=== PATIENT | female | born 1955 | race Caucasian/White ===

== ENCOUNTER 2020-11-24 20:28 | Inpatient (IN) | payer MEDICARE, MEDICAID ==
[~2020-11-24] VITALS: Ht 154.9 cm; Wt 56.7 kg
[2020-11-24 22:16] LABS: BASOPHILS % 0.5 % (0.0-2.0); EOSINOPHILS % 10.1 % (0.0-5.0); HEMATOCRIT. 36.7 % (36.0-48.0); HEMOGLOBIN. 12.9 g/dL (12.0-16.0); LYMPHOCYTES % 15.9 % (20.0-50.0); MEAN CORPUSCULAR HEMOGLOBIN 31.3 pg (28.0-32.0); MEAN CORPUSCULAR VOLUME 89.2 fL (81.0-99.0); MEAN PLATELET VOLUME 7.5 fl (7.4-10.4); MONOCYTES % 10.5 % (2.0-8.0); PLATELET 177 x1000/uL (130-400); RED BLOOD CELL COUNT 4.11 mill/uL (4.2-5.4); RED CELL DISTRIBUTION WIDTH 13.5 % (11.6-14.6)
[2020-11-24 22:21] LABS: CHLORIDE 99 mEq/L (98-107)
[2020-11-24 22:26] LABS: ETHANOL BLOOD 27 mg/dL
[2020-11-24] MEDS ORDERED: SODIUM CHLORIDE 0.9% 1,000 ML IV ONE (23:00)
[2020-11-25 00:04] LABS: CLARITY URINE CLEAR (CLEAR); COLOR URINE YELLOW (YELLOW); KETONES URINE NEGATIVE (NEGATIVE); LEUKOCYTE ESTERASE URINE NEGATIVE (NEGATIVE); NITRITE URINE NEGATIVE (NEGATIVE); OCCULT BLOOD URINE NEGATIVE (NEGATIVE); PH URINE 6.5 (4.5-8.0); PROTEIN URINE NEGATIVE (NEGATIVE); SPECIFIC GRAVITY URINE 1.011 (1.005-1.030); UROBILINOGEN URINE 0.2 E.U./dL (0.2-1.0)
[2020-11-25 00:18] LABS: *AMPHETAMINES SCREEN URINE NEGATIVE (NEGATIVE); *BARBITURATES SCREEN URINE NEGATIVE (NEGATIVE); *BENZODIAZEPINES SCREEN URINE NEGATIVE (NEGATIVE); *COCAINE SCREEN URINE NEGATIVE (NEGATIVE); CANNABINOID URINE SCREEN PRESUMTIVE POSITIVE (NEGATIVE); METHADONE URINE SCREEN NEGATIVE (NEGATIVE); OPIATES URINE SCREEN NEGATIVE (NEGATIVE); PHENCYCLIDINE URINE SCREEN NEGATIVE (NEGATIVE)
[2020-11-25 09:40] VITALS: BP 159/66
[2020-11-25 10:00] VITALS: BP 159/66
[2020-11-25] MEDS: ENOXAPARIN 40MG/0.4ML SYR SUBCUT SCH (11:35)
[2020-11-25] MEDS: SODIUM CHLORIDE 0.9% 1,000 ML IV SCH (11:37)
[2020-11-25] MEDS ORDERED: METO-539 PO (11:58)
[2020-11-25 12:00] VITALS: BP 132/61
[2020-11-25] MEDS: HYDROCODONE/ACETAMINOPHEN 5/325MG TABLET PO PRN (14:18)
[2020-11-25 16:00] VITALS: BP_SYST 119; BP_SYST 136; BP_SYST 138; BP_SYST 148; BP_DIAS 64; BP_DIAS 67; BP_DIAS 71
[2020-11-25 18:00] VITALS: BP_SYST 134; BP_SYST 148; BP_DIAS 71; BP_DIAS 76
[2020-11-25 20:00] VITALS: BP 133/58
[2020-11-25] MEDS: IPRATROPIUM/ALBUTEROL 0.5-3(2.5)MG/3ML NEB HHN SCH (20:47)
[2020-11-26] VITALS: BP 128/50
[2020-11-26 04:00] VITALS: BP_SYST 153; BP_SYST 169; BP_DIAS 63; BP_DIAS 78
[2020-11-26 06:35] LABS: BASOPHILS % 0.7 % (0.0-2.0); EOSINOPHILS % 11.4 % (0.0-5.0); HEMATOCRIT. 37.7 % (36.0-48.0); MEAN CORPUSCULAR HEMOGLOBIN 31.2 pg (28.0-32.0); MEAN CORPUSCULAR VOLUME 90.7 fL (81.0-99.0); MEAN PLATELET VOLUME 7.6 fl (7.4-10.4); NEUTROPHILS % 48.9 % (40.0-76.0); PLATELET 141 x1000/uL (130-400); RED BLOOD CELL COUNT 4.16 mill/uL (4.2-5.4); RED CELL DISTRIBUTION WIDTH 13.8 % (11.6-14.6)
[2020-11-26 07:35] LABS: CHLORIDE 107 mEq/L (98-107)
[2020-11-26 08:00] VITALS: BP 144/70
[2020-11-26] MEDS: IPRATROPIUM/ALBUTEROL 0.5-3(2.5)MG/3ML NEB HHN SCH ×3 (08:31→20:31)
[2020-11-26] MEDS: ENOXAPARIN 40MG/0.4ML SYR SUBCUT SCH (09:22)
[2020-11-26] MEDS ORDERED: AMLODIPINE 2.5MG TABLET PO NR (11:15)
[2020-11-26] MEDS: ASPIRIN 81MG EC TABLET PO SCH (11:32)
[2020-11-26 12:00] VITALS: BP 147/67
[2020-11-26] MEDS ORDERED: ONDANSETRON HCL 4MG/2ML INJ IV PRN (15:15)
[2020-11-26] MEDS ORDERED: ACETAMINOPHEN 325MG TABLET PO PRN (15:15)
[2020-11-26] MEDS ORDERED: ACETAMINOPHEN 650MG SUPP PR PRN (15:15)
[2020-11-26] MEDS ORDERED: HYDRALAZINE 20MG/ML VIAL IV PRN (15:15)
[2020-11-26 16:13] VITALS: BP_SYST 134; BP_SYST 157; BP_DIAS 80; BP_DIAS 88
[2020-11-26] MEDS: SODIUM CHLORIDE 0.9% 1,000 ML IV SCH (18:21)
[2020-11-26] MEDS: HYDROCODONE/ACETAMINOPHEN 5/325MG TABLET PO PRN (18:25)
[2020-11-26 19:07] LABS: D-DIMER < 0.19 mg/L FEU (<0.50); INR 1.1; PROTHROMBIN TIME 11.4 sec (9.6-11.0)
[2020-11-26 20:00] VITALS: BP 151/79
[2020-11-26] MEDS ORDERED: FAMOTIDINE 20MG TABLET PO SCH (21:00)
[2020-11-27] VITALS (7 sets, daily range): BP systolic 111–165; BP diastolic 59–99
[2020-11-27] MEDS: SODIUM CHLORIDE 0.9% 1,000 ML IV SCH ×2 (06:25→16:05)
[2020-11-27 06:46] LABS: BASOPHILS % 0.7 % (0.0-2.0); EOSINOPHILS % 11.5 % (0.0-5.0); HEMATOCRIT. 39.2 % (36.0-48.0); HEMOGLOBIN. 13.4 g/dL (12.0-16.0); LYMPHOCYTES % 22.2 % (20.0-50.0); MEAN CORPUSCULAR HEMOGLOBIN 31.1 pg (28.0-32.0); MEAN CORPUSCULAR VOLUME 90.9 fL (81.0-99.0); MEAN PLATELET VOLUME 7.4 fl (7.4-10.4); MONOCYTES % 11.7 % (2.0-8.0); NEUTROPHILS % 53.9 % (40.0-76.0); PLATELET 157 x1000/uL (130-400); RED BLOOD CELL COUNT 4.32 mill/uL (4.2-5.4); RED CELL DISTRIBUTION WIDTH 13.9 % (11.6-14.6)
[2020-11-27 06:54] LABS: CHLORIDE 108 mEq/L (98-107)
[2020-11-27] MEDS: ASPIRIN 81MG EC TABLET PO SCH (07:57)
[2020-11-27] MEDS: HYDROCODONE/ACETAMINOPHEN 5/325MG TABLET PO PRN (07:58)
[2020-11-27] MEDS ORDERED: AMLODIPINE 2.5MG TABLET PO SCH (09:00)
[2020-11-27] MEDS: IPRATROPIUM/ALBUTEROL 0.5-3(2.5)MG/3ML NEB HHN SCH ×2 (09:37→14:59)
[2020-11-27] MEDS: ENOXAPARIN 40MG/0.4ML SYR SUBCUT SCH (11:00)
[2020-11-27] MEDS ORDERED: ASPI-1497 MT (16:43)
[2020-11-27] MEDS ORDERED: ALBU90AE INH (16:43)
== END 2020-11-27 21:10 | disposition home or self-care (01) | DRG 74 ==
LOC: ER 20:28 → 5WST 11-25 01:37 → ENRESERV 11-25 05:18 → CANRESERV 11-25 05:18 → ENRESERV 11-25 07:43
PROVIDERS: ADMIT Internal Medicine; ATTEND Internal Medicine
DX: G90.8 Other disorders of autonomic nervous system (principal); E87.1 Hypo-osmolality and hyponatremia; M94.0 Chondrocostal junction syndrome [Tietze]; J44.9 Chronic obstructive pulmonary disease, unspecified; M06.9 Rheumatoid arthritis, unspecified; F12.90 Cannabis use, unspecified, uncomplicated; I10 Essential (primary) hypertension; Y90.1 Blood alcohol level of 20-39 mg/100 ml; E86.0 Dehydration; I95.9 Hypotension, unspecified; E87.6 Hypokalemia; I35.1 Nonrheumatic aortic (valve) insufficiency; Z79.899 Other long term (current) drug therapy; Z87.01 Personal history of pneumonia (recurrent); Z72.89 Other problems related to lifestyle; Z71.41 Alcohol abuse counseling and surveillance of alcoholic; Z71.51 Drug abuse counseling and surveillance of drug abuser
CPT/HCPCS: 36415; 71045; 80048; 80053; 80305; 80320; 81003; 82962; 83880; 84484; 85025; 85379; 87426; 93005; 93306; 93880; 93970; 94640; 97162; 99285; J1650; J2405; J7030; G0480

== ENCOUNTER 2022-01-14 05:37 | Emergency (ER) | payer MEDICARE, MEDICAID ==
[~2022-01-14] VITALS: Ht 167.6 cm; Wt 55.0 kg
[~2022-01-14 05:37] MED LIST: ALBU90AE INH; ASPI-1497 MT; METO-539 PO
[2022-01-14 06:48] LABS: CHLORIDE 106 mEq/L (98-107)
[2022-01-14 06:54] LABS: BASOPHILS % 0.2 % (0.0-2.0); EOSINOPHILS % 12.3 % (0.0-5.0); HEMATOCRIT. 37.4 % (36.0-48.0); HEMOGLOBIN. 12.8 g/dL (12.0-16.0); LYMPHOCYTES % 16.6 % (20.0-50.0); MEAN CORPUSCULAR HEMOGLOBIN 30.3 pg (28.0-32.0); MEAN CORPUSCULAR VOLUME 88.4 fL (81.0-99.0); MEAN PLATELET VOLUME 7.4 fl (7.4-10.4); MONOCYTES % 9.4 % (2.0-8.0); NEUTROPHILS % 61.5 % (40.0-76.0); PLATELET 221 x1000/uL (130-400); RED BLOOD CELL COUNT 4.23 mill/uL (4.2-5.4)
[2022-01-14 06:56] LABS: ETHANOL BLOOD < 10 mg/dL
[2022-01-14] MEDS ORDERED: ACETAMINOPHEN WITH CODEINE 300/30MG TABLET PO ONE (07:00)
[2022-01-14] MEDS ORDERED: AMLODIPINE 5MG TABLET PO ONE (07:00)
[2022-01-14] MEDS ORDERED: TRANEXAMIC ACID 1,000 MG/10 ML TP ONE (07:00)
[2022-01-14] MEDS ORDERED: AMLODIPINE 5MG TABLET PO NR (09:00)
[2022-01-14] MEDS ORDERED: ACETAMINOPHEN WITH CODEINE 300/30MG TABLET PO NR (09:00)
[2022-01-14] MEDS ORDERED: HYDROCODONE/ACETAMINOPHEN 5/325MG TABLET PO ONE (11:45)
[2022-01-14 12:30] VITALS: BP 139/81
== END 2022-01-14 14:20 | disposition home or self-care (01) ==
LOC: ER 05:37
DX: R04.0 Epistaxis (principal); I16.0 Hypertensive urgency
CPT/HCPCS: 36415; 80053; 80320; 85025; 93005; 99284; G0480